=== PATIENT | male | born 1995 | race Caucasian/White ===

== ENCOUNTER 2018-01-08 15:05 | Emergency (ER) | payer OTHER ==
[2018-01-08] MEDS ORDERED: Bacitracin Oint 28.35 GM Tube ONE (15:37)
[2018-01-08] MEDS ORDERED: Bacitracin Oint 1 GM U/D Packet TOP ONE (15:38)
[2018-01-08] MEDS ORDERED: Bacitracin Oint 28.35 GM Tube TOP ONE (15:49)
[2018-01-08] MEDS ORDERED: Acetaminophen/oxyCODONE 325-5 MG Tab PO ONE (16:25)
[2018-01-08] MEDS ORDERED: Acetaminophen 500 MG Tab PO ONE (16:29)
[2018-01-08] MEDS ORDERED: Ibuprofen 800 MG Tab PO ONE (16:30)
--- NOTE | 2018-01-08 16:46 | EDM.PDOC ---
ED HPI GENERAL MEDICAL PROBLEM - General Chief Complaint: Burn Stated Complaint: BURN ON RIGHT HAND Time Seen by Provider: 01/08/18 15:08 Source of Information: Reports: Patient History Limitations: Reports: No Limitations - History of Present Illness INITIAL COMMENTS - FREE TEXT/NARRATIVE: She was working with a plaster metal cutting torch at [employer] and approximately 2 PM the torch bumped into another metal piece of that he was cutting and fell out of his hand. This then brushed across the surface of his right volar surface metacarpophalangeal dermis and the proximal metacarpals of the dorsum of his dominant right hand. He has no sensation the central portion of the burn. There is no compromise range of motion of his fingers. He has sensation in all his fingers the palmar and dorsal surface of his hand distal to the burn at the wrist.. Wound is a third-degree burn , white, insensate and on the dorsum has dimensions of 20 cm x 10 cm which extends circumferentially around to the volar an addtional 20 cm. Resulting in a total burn circumferential distance is 40 cm. Which is 66% circumferential involvement second and third degree wrist burn (total normal and abnormal wrist burn circumference surface of 60 cm) RT HAND Pain Score (Numeric/FACES): 6 - Related Data Allergies Allergy/AdvReac Type Severity Reaction Status Date / Time No Known Allergies Allergy Verified 01/08/18 15:29 Home Meds: Home Meds NK [No Known Home Meds] 01/08/18 [History] Past Medical History Psychiatric History: Reports: Anxiety - Past Surgical History Other Musculoskeletal Surgeries/Procedures:: KNEE SURGERY Social & Family History - Family History Family Medical History: Noncontributory - Tobacco Use Smoking Status *Q: Never Smoker - Caffeine Use Caffeine Use: Reports: Coffee, Energy Drinks, Soda - Recreational Drug Use Recreational Drug Use: No ED ROS GENERAL - Review of Systems Review Of Systems: See Below Constitutional: Reports: No Symptoms HEENT: Reports: No Symptoms Respiratory: Reports: No Symptoms Cardiovascular: Reports: No Symptoms Endocrine: Reports: No Symptoms GI/Abdominal: Reports: No Symptoms : Reports: No Symptoms Musculoskeletal: Reports: No Symptoms Skin: Reports: No Symptoms Neurological: Reports: No Symptoms Psychiatric: Reports: No Symptoms Hematologic/Lymphatic: Reports: No Symptoms Immunologic: Reports: No Symptoms ED EXAM, BURN/SMOKE INHALATION - Physical Exam Exam: See Below Text/Narrative:: The circumferential burn was described in history of present illness. The non- burn surface of the right hand was liberally cleansed with surgical scrub brush removing industrial oils and dirt on his fingers palm, dorsum and the ungual surfaces. Exam Limited By: No Limitations General Appearance: Alert, WD/WN, Moderate Distress Eye Exam: Bilateral Eye: Normal Inspection Ears (Abbreviated): Normal External Exam Mouth/Throat: No Symptoms Reported Head: No Symptoms Neck: No Symptoms Respiratory: No Respiratory Distress Cardiovascular: Normal Peripheral Pulses Peripheral Pulses: 1+: Radial (L), Radial (R) GI/Abdominal: Normal Bowel Sounds, Soft, No Distention, No Abnormal Bruit (Male) Exam: Deferred Rectal Exam: Deferred Extremities: Other (See above description) Neurological: Alert, Oriented, CN II-XII Intact, Normal Cognition, Normal Gait, Normal Reflexes, No Motor/Sensory Deficits Psychiatric: Normal Affect Lymphatic: No Adenopathy Course - Vital Signs Last Recorded V/S: Last Vital Signs Temp 36.8 C 01/08/18 16:21 Pulse 82 01/08/18 16:21 Resp 17 01/08/18 16:21 BP 138/71 01/08/18 16:21 Pulse Ox 100 01/08/18 16:21 - Orders/Labs/Meds Meds: Medications Discontinued Medications Generic Name Dose Route Start Last Admin Trade Name Karissa PRN Reason Stop Dose Admin Acetaminophen 1,000 mg 01/08/18 16:29 Tylenol Extra Strength PO 01/08/18 16:30 ONETIME ONE Bacitracin Confirm 01/08/18 15:37 01/08/18 15:55 Bacitracin Oint Administered 01/08/18 15:38 Not Given Dose 28.35 gm .ROUTE .STK-MED ONE Bacitracin 1 dose 01/08/18 15:38 01/08/18 15:55 Bacitracin Oint 1 Gm TOP 01/08/18 15:39 Not Given ONETIME ONE Bacitracin 28.35 gm 01/08/18 15:49 01/08/18 15:49 Bacitracin Oint TOP 01/08/18 15:50 1 applic ONETIME ONE Administration Ibuprofen 800 mg 01/08/18 16:30 Motrin PO 01/08/18 16:31 ONETIME ONE Departure - Departure Time of Disposition: 16:30 (At [address] Owusu had been [facility] burn unit for transfer of patient to [place] have been following burn center I have spoken to [facility] and they do not have burn services. 66% circumferential third-degree burn right dominant hand wrist.) Disposition: DC/Tfer to Acute Hospital 02 Clinical Impression: Third degree burn - Discharge Information *PRESCRIPTION DRUG MONITORING PROGRAM REVIEWED*: Not Applicable *COPY OF PRESCRIPTION DRUG MONITORING REPORT IN PATIENT VICTORINA: Not Applicable Instructions: Burn Care, Adult, [id number], Second-Degree Burn, Adult Referrals: Adamaris Barnard NP [Primary Care Provider] - Forms: ED Department Discharge Additional Instructions: To the burn center are to go directly to the [facility] ED that they will direct you to the Burn unit. I've spoken to Dr. Owusu. He may not be consumer affairs director when you arrive so someone else may see you . You will need someone to drive you there if you choose to take pain medicine. If you don't choose to take medicine been you will have a lot of pain on your travel to [place]. Do not put your hand out the window to decrease the pain by exposing it to cold air. You will have Percocet a pain medicine to decrease the pain. Keep your Burned right hand above her heart to diminish the swelling of your burned hand. You have been dispensed a sling to help you keep your right hand above the level your heart
== END 2018-01-08 16:55 ==
LOC: FB.ED 15:05
DX: T23.301A Burn of third degree of right hand, unspecified site, initial encounter (principal)
CPT/HCPCS: 99284; A9270

== ENCOUNTER 2018-08-20 20:06 | Emergency (ER) | payer OTHER ==
--- NOTE | 2018-08-21 22:10 | EDM.PDOC ---
ED HPI GENERAL MEDICAL PROBLEM - General Chief Complaint: ENT Problem Stated Complaint: LEFT EYE PAIN Time Seen by Provider: 08/20/18 20:15 Source of Information: Reports: Patient - History of Present Illness INITIAL COMMENTS - FREE TEXT/NARRATIVE: pt is being treated for left eye abrasion X 2 days, with erythromycin ointment, is here due to continued pain, pt report tearing and photosensitivity, denies problems with his vision or any other associated sx or concerns. left ee Pain Score (Numeric/FACES): 6 - Related Data Allergies Allergy/AdvReac Type Severity Reaction Status Date / Time No Known Allergies Allergy Verified 08/20/18 20:25 Home Meds: Home Meds Erythromycin Base [Erythromycin] 1 applic EYELF QID 08/20/18 [History] Past Medical History Psychiatric History: Reports: Anxiety - Past Surgical History Other Musculoskeletal Surgeries/Procedures:: KNEE SURGERY Social & Family History - Family History Family Medical History: Noncontributory - Tobacco Use Smoking Status *Q: Never Smoker - Caffeine Use Caffeine Use: Reports: None - Recreational Drug Use Recreational Drug Use: No ED ROS GENERAL - Review of Systems Review Of Systems: See Below Constitutional: Reports: No Symptoms HEENT: Reports: Eye Discharge, Eye Pain. Denies: Ear Pain Respiratory: Reports: No Symptoms Cardiovascular: Reports: No Symptoms ED EXAM, GENERAL - Physical Exam Exam: See Below Exam Limited By: No Limitations General Appearance: Alert Eye Exam: Left Eye: Other (pt has cornea abrasion under flouroseen , EOMI and nontender, anterior seg is normal. conjuctiva is injected, rest of eye exam is normal. ) Respiratory/Chest: No Respiratory Distress Cardiovascular: Normal Peripheral Pulses Course - Vital Signs Text/Narrative:: pt has photosensitivity and pain due to the abrasion , advised him to continue with erythromycin ointment, also provided him with eye patch which was applied here, pt to follow at a local eye clinic in 2 days if no improvement, use over the counter motrin as directed if needed. Last Recorded V/S: Last Vital Signs Temp 36.7 C 08/20/18 20:10 Pulse 70 08/20/18 20:10 Resp 16 08/20/18 20:10 BP 152/76 H 08/20/18 20:10 Pulse Ox 100 08/20/18 20:10 Departure - Departure Time of Disposition: 20:30 Disposition: Home, Self-Care 01 Clinical Impression: Cornea abrasion - Discharge Information Instructions: Corneal Abrasion, [id number] Referrals: Magdalena Daniel NP [Primary Care Provider] - Forms: ED Department Discharge Care Plan Goals: Continue with ointment to left eye. Wear patch to eye for bright lights Follow up in 2 days if not getting better - Problem List & Annotations (1) Cornea abrasion SNOMED Code(s): 63981473 Code(s): S05.00XA - INJ CONJUNCTIVA AND CORNEAL ABRASION W/O FB, UNSP EYE, INIT Status: Acute
== END 2018-08-20 20:30 | disposition home or self-care (01) ==
LOC: FB.ED 20:06
DX: S05.02XA Injury of conjunctiva and corneal abrasion without foreign body, left eye, initial encounter (principal); X58.XXXA Exposure to other specified factors, initial encounter
CPT/HCPCS: 99283

== ENCOUNTER 2019-02-07 16:32 | Emergency (ER) | payer OTHER ==
[2019-02-07] MEDS ORDERED: Lidocaine 2% 20 ML MDV INFILT ONE (16:33)
[2019-02-07] MEDS ORDERED: Lidocaine 2% Viscous Solution 15 ML Cup PO ONE (17:46)
--- NOTE | 2019-02-07 17:51 | EDM.PDOC ---
ED HPI GENERAL MEDICAL PROBLEM - General Chief Complaint: Upper Extremity Injury/Pain Stated Complaint: LFT POINTER FINGER IN CAR DOOR Time Seen by Provider: 02/07/19 16:40 Source of Information: Reports: Patient History Limitations: Reports: No Limitations - History of Present Illness INITIAL COMMENTS - FREE TEXT/NARRATIVE: Patient presented to the ED because of left index finger injury. His left index finger got caught when he slammed the door of his car. He is able to felx and extend his finger but with pain. LEFT INDEX FINGER Pain Score (Numeric/FACES): 7 - Related Data Allergies Allergy/AdvReac Type Severity Reaction Status Date / Time No Known Allergies Allergy Verified 02/07/19 17:01 Home Meds: Home Meds Erythromycin Base [Erythromycin] 1 applic EYELF QID 08/20/18 [History] Ibuprofen 800 mg PO TID PRN #30 tablet 02/07/19 [Rx] cephALEXin [Keflex] 500 mg PO Q8H #30 cap 02/07/19 [Rx] Past Medical History Psychiatric History: Reports: Anxiety - Past Surgical History Other Musculoskeletal Surgeries/Procedures:: RT KNEE SURGERY Social & Family History - Family History Family Medical History: Noncontributory - Tobacco Use Smoking Status *Q: Never Smoker - Caffeine Use Caffeine Use: Reports: None - Recreational Drug Use Recreational Drug Use: No Review of Systems - Review of Systems Review Of Systems: See Below Constitutional: Reports: No Symptoms Eyes: Reports: No Symptoms Ears: Reports: No Symptoms Nose: Reports: No Symptoms Mouth/Throat: Reports: No Symptoms Respiratory: Reports: No Symptoms Cardiovascular: Reports: No Symptoms GI/Abdominal: Reports: No Symptoms Musculoskeletal: Reports: No Symptoms Skin: Reports: Other (left finger nail avulsion) ED EXAM, GENERAL - Physical Exam Exam: See Below Exam Limited By: No Limitations General Appearance: Alert, WD/WN, No Apparent Distress Eye Exam: Bilateral Eye: PERRL GI/Abdominal: Normal Bowel Sounds Rectal (Males) Exam: Normal Exam Back Exam: Normal Inspection, Full Range of Motion Extremities: Normal Inspection, Normal Range of Motion, Other (avulsed left index finger nail) Psychiatric: Normal Affect Skin Exam: Warm Course - Vital Signs Text/Narrative:: xray left index finger-negative for fracture Tdap keflex 500 mg po x1 ibuprofen 800 mg po x1 tylenol 1000 mg po x1 Procedure Note: The web of the left thumb and index finger was sterilized with alcohol then an iodine swab. 1 ml of 2% lidocaine was was injected on each side of the left index finger for a digital nerve block. The avulsed nailed was then removed. Patient tolerated the procedure well without any complication. Last Recorded V/S: Last Vital Signs Temp 36.7 C 02/07/19 16:35 Pulse 94 02/07/19 16:35 Resp 18 02/07/19 16:35 BP 122/64 02/07/19 16:35 Pulse Ox 100 02/07/19 16:35 - Orders/Labs/Meds Orders: Active Orders 24 hr Category Date Time Status Hand 2V Lt [CR] Stat Exams 02/07/19 16:58 Taken Meds: Medications Discontinued Medications Generic Name Dose Route Start Last Admin Trade Name Frandyq PRN Reason Stop Dose Admin Acetaminophen 1,000 mg 02/07/19 18:12 Tylenol Extra Strength PO 02/07/19 18:13 ONETIME ONE Cephalexin 500 mg 02/07/19 18:11 Keflex PO 02/07/19 18:12 ONETIME ONE Ibuprofen 800 mg 02/07/19 18:11 Motrin PO 02/07/19 18:12 ONETIME ONE Lidocaine HCl 15 ml 02/07/19 17:46 02/07/19 17:59 Xylocaine 2% Viscous PO 02/07/19 17:47 15 ml ONETIME ONE Administration Departure - Departure Time of Disposition: 18:05 Disposition: Home, Self-Care 01 Condition: Good Clinical Impression: Nail avulsion, finger - Discharge Information *PRESCRIPTION DRUG MONITORING PROGRAM REVIEWED*: No *COPY OF PRESCRIPTION DRUG MONITORING REPORT IN PATIENT VICTORINA: No Prescriptions: cephALEXin [Keflex] 500 mg PO Q8H #30 cap Ibuprofen 800 mg PO TID PRN #30 tablet PRN Reason: Pain Instructions: Nail Avulsion, Fingernail or Toenail Removal, Adult, Care After Referrals: PCP,None [Primary Care Provider] - Forms: ED Department Discharge Additional Instructions: Please read discharge instyructions on finger injury and nail avulsion take ibuprofen 800 mg with tylenol 1000 mg evry 8 hors as needed for pain Keflex 500 mg 3 times daily for 10 days Follow up as needed - My Orders Last 24 Hours: My Active Orders 02/07/19 16:58 Hand 2V Lt [CR] Stat - Assessment/Plan Last 24 Hours: My Active Orders 02/07/19 16:58 Hand 2V Lt [CR] Stat
[2019-02-07] MEDS ORDERED: Cephalexin 500 MG Cap PO ONE (18:11)
[2019-02-07] MEDS ORDERED: Ibuprofen 800 MG Tab PO ONE (18:11)
[2019-02-07] MEDS ORDERED: Acetaminophen 500 MG Tab PO ONE (18:12)
--- NOTE | 2019-02-08 11:13 | CR ---
INDICATION: Left second finger injury, which was caught in the car door. LEFT HAND: Three views of the left hand were obtained for second finger and revealed soft tissue swelling at the distal phalanx of the second finger. However, no underlying fracture, dislocation, or other significant bone or joint abnormality was identified. PARAM
== END 2019-02-07 18:39 | disposition home or self-care (01) ==
LOC: FB.ED 16:32
DX: S61.301A Unspecified open wound of left index finger with damage to nail, initial encounter (principal); W23.0XXA Caught, crushed, jammed, or pinched between moving objects, initial encounter
CPT/HCPCS: 64450; 73130; 99283; A9270; J2001